=== PATIENT | female | born 1945 | race Two or more races ===

== ENCOUNTER 2023-07-13 10:14 | Emergency (ER) | payer OTHER, BC ==
[2023-07-13 10:26] VITALS: BMI 23.6
[2023-07-13 11:45] LABS: HEMATOCRIT 42.7 % (32.4-45.2); HEMOGLOBIN 14.5 GM/dL (10.7-15.3); MCH 29.7 pg (25.7-33.7); MEAN CELL VOLUME 87.2 fl (80-96); MEAN PLT VOLUME 8.8 fl (7.5-11.1); PLATELET COUNT 206 10^3/uL (134-434); RDW 13.5 % (11.6-15.6)
[2023-07-13] MEDS ORDERED: FAMOTIDINE 20 MG/50 ML IVPB 20 MG/50 ML MG IVPB ONE (11:52)
[2023-07-13] MEDS ORDERED: MECLIZINE HCL 25 MG TABLET (FP) ONE (11:52)
[2023-07-13] MEDS ORDERED: METOCLOPRAMIDE HCL INJECTION 10 MG/2 ML VIAL ONE (11:52)
[2023-07-13] MEDS ORDERED: ACETAMINOPHEN INJECTION 100 ML IVPB ONE (11:52)
[2023-07-13] MEDS: SODIUM CHLORIDE 0.9% 500 ML INFUS.BAG IV ONE (12:03)
[2023-07-13] MEDS: MECLIZINE HCL 25 MG TABLET (FP) PO ONE (12:03)
[2023-07-13] MEDS: ACETAMINOPHEN 1000 MG/100 ML BAG IVPB ONE (12:03)
[2023-07-13] MEDS: FAMOTIDINE 20 MG/50 ML IVPB 20 MG/50 ML MG IVPB ONE (12:04)
[2023-07-13] MEDS: METOCLOPRAMIDE HCL INJECTION 10 MG/2 ML VIAL IVPUSH ONE (12:04)
[2023-07-13 12:09] LABS: POTASSIUM 4.1 mmol/L (3.5-5.1)
[2023-07-13 12:10] LABS: ALBUMIN 3.7 g/dl (3.4-5.0); BLOOD UREA NITROGEN 26.1 mg/dL (7-18); CALCIUM 9.4 mg/dL (8.5-10.1); MAGNESIUM 2.2 mg/dL (1.8-2.4)
[2023-07-13 12:13] LABS: CREATININE 0.8 mg/dL (0.55-1.3)
[2023-07-13 12:15] LABS: BILIRUBIN,TOTAL 0.8 mg/dL (0.2-1); TOT PROT 7.7 g/dl (6.4-8.2)
[2023-07-13 13:16] LABS: ANISOCYTOSIS 0; HELMET CELLS 0; HOWELL-JOLLY BODIES 0; MACROCYTOSIS 0; OVALOCYTE 0; ROULEAU 0; SICKELED CELLS 0; TARGET CELLS 0; TEAR DROP CELLS 0; TOXIC GRANULATION 0
[2023-07-13 13:45] LABS: PH,URINE 8.5 (5.0-8.0); URINE APPEARANCE CLOUDY; URINE BILIRUBIN NEGATIVE (NEGATIVE); URINE COLOR YELLOW; URINE GLUCOSE (UA) NEGATIVE (NEGATIVE); URINE KETONE 1+ (NEGATIVE); URINE LEUK ESTERASE NEGATIVE (NEGATIVE); URINE NITRITE NEGATIVE (NEGATIVE); URINE PROTEIN NEGATIVE (NEGATIVE); URINE UROBILINOGEN 0.2 mg/dL (0.2-1.0)
[2023-07-13 13:53] VITALS: BP 126/66; PULSE 65; RESP 20
== END 2023-07-13 15:31 | disposition home or self-care (01) ==
LOC: JER 10:14
PROC: 3E033GC Introduction of Other Therapeutic Substance into Peripheral Vein, Percutaneous Approach (ICD-10-PCS; principal; 2023-07-13)
PROC: 3E030NZ Introduction of Analgesics, Hypnotics, Sedatives into Peripheral Vein, Open Approach (ICD-10-PCS; 2023-07-13)
PROC: 3E030GC Introduction of Other Therapeutic Substance into Peripheral Vein, Open Approach (ICD-10-PCS; 2023-07-13)
DX: R11.2 Nausea with vomiting, unspecified (principal); R42 Dizziness and giddiness
CPT/HCPCS: 36415; 80053; 81003; 83690; 83735; 83880; 84484; 85025; 87086; 93005; 93010; 99284-25; J0131

== ENCOUNTER 2024-11-18 11:42 | Emergency (ER) | payer OTHER, BC ==
[2024-11-18 11:50] VITALS: RESP 18; BMI 25.4
[2024-11-18 12:40] LABS: MCHC 33.0 g/dl (32.2-35.5); MEAN CELL VOLUME 87.1 fl (79.4-94.8); MEAN PLT VOLUME 11.2 fl (9.4-12.3); RDW 12.5 % (12.4-16.6)
[2024-11-18] MEDS ORDERED: ONDANSETRON 4 MG/2 ML VIAL ONE (12:40)
[2024-11-18] MEDS ORDERED: ACETAMINOPHEN INJECTION 100 ML ONE (12:40)
[2024-11-18] MEDS: ACETAMINOPHEN 1000 MG/100 ML BAG IVPB ONE (12:47)
[2024-11-18] MEDS: SODIUM CHLORIDE 0.9% 500 ML INFUS.BAG IV ONE (12:47)
[2024-11-18] MEDS: ONDANSETRON 4 MG/2 ML VIAL IVPUSH ONE (12:48)
[2024-11-18 13:16] LABS: GLUCOSE,RANDOM 127.0 mg/dL (74-106)
[2024-11-18 13:17] LABS: CO2 23.0 mmol/L (21-32); TOT PROT 7.7 g/dl (6.4-8.2)
[2024-11-18 13:19] LABS: ALK PHOS 82.0 U/L (40-150)
[2024-11-18 13:22] LABS: CREATININE 0.73 mg/dL (0.55-1.3); SGOT/AST 22.0 U/L (5-34); SGPT/ALT 15.0 U/L (0-55)
[2024-11-18 13:43] LABS: HIV INTERPRETATION NEGATIVE (NEGATIVE)
[2024-11-18 13:57] LABS: URINE APPEARANCE CLOUDY; URINE BILIRUBIN NEGATIVE (NEGATIVE); URINE COLOR YELLOW; URINE GLUCOSE (UA) NEGATIVE (NEGATIVE); URINE KETONE NEGATIVE (NEGATIVE); URINE LEUK ESTERASE NEGATIVE (NEGATIVE); URINE NITRITE NEGATIVE (NEGATIVE); URINE PROTEIN NEGATIVE (NEGATIVE); URINE UROBILINOGEN 0.2 mg/dL (0.2-1.0)
[2024-11-18] MEDS ORDERED: ONDANSETRON 4 MG/2 ML VIAL IVPUSH ONE (13:58)
[2024-11-18] MEDS ORDERED: KETOROLAC TROMETHAMINE 15 MG/ML VIAL ONE (14:07)
[2024-11-18] MEDS ORDERED: MAGNESIUM 1GM/D5W - 1 GM/100 ML IVPB IVPB ONE (14:07)
[2024-11-18] MEDS ORDERED: PROCHLORPERAZINE INJECTION 10 MG/2 ML VIAL ONE (14:07)
[2024-11-18] MEDS: MAGNESIUM 1GM/D5W - 1 GM/100 ML IVPB IVPB ONE (14:19)
[2024-11-18] MEDS: PROCHLORPERAZINE INJECTION 10 MG/2 ML VIAL IM ONE (14:19)
[2024-11-18] MEDS: KETOROLAC TROMETHAMINE 15 MG/ML VIAL IVPUSH ONE (14:19)
[2024-11-18] MEDS ORDERED: MECLIZINE HCL 12.5 MG TABLET ONE (14:31)
[2024-11-18] MEDS ORDERED: MAGNESIUM OXIDE 400 MG TABLET (FP) ONE (14:32)
[2024-11-18] MEDS: MECLIZINE HCL 12.5 MG TABLET PO ONE (14:35)
[2024-11-18] MEDS: MAGNESIUM OXIDE 400 MG TABLET (FP) PO ONE (14:35)
[2024-11-18] MEDS ORDERED: PROMETHAZINE HCL 25 MG/1 ML VIAL ONE (15:06)
[2024-11-18 15:42] VITALS: BP 138/72; PULSE 72; TEMP 97.9
[2024-11-18] MEDS: PROMETHAZINE HCL 25 MG/1 ML VIAL IVPB ONE (16:45)
== END 2024-11-18 17:43 | disposition home or self-care (01) ==
LOC: JER 11:42
PROC: 3E033GC Introduction of Other Therapeutic Substance into Peripheral Vein, Percutaneous Approach (ICD-10-PCS; principal; 2024-11-18)
PROC: 3E033NZ Introduction of Analgesics, Hypnotics, Sedatives into Peripheral Vein, Percutaneous Approach (ICD-10-PCS; 2024-11-18)
PROC: 3E033GC Introduction of Other Therapeutic Substance into Peripheral Vein, Percutaneous Approach (ICD-10-PCS; 2024-11-18)
PROC: 3E023GC Introduction of Other Therapeutic Substance into Muscle, Percutaneous Approach (ICD-10-PCS; 2024-11-18)
DX: M54.50 Low back pain, unspecified (principal); R11.2 Nausea with vomiting, unspecified; R68.83 Chills (without fever); R42 Dizziness and giddiness; H55.09 Other forms of nystagmus; R10.32 Left lower quadrant pain
CPT/HCPCS: 36415; 70450-TC; 74177-TC; 80053; 81003; 83735; 84484; 85027; 86803; 87086; 87389; 93005; 93010; 99285-25; Q9967